=== PATIENT | female | born 1985 | race Caucasian/White ===

== ENCOUNTER 2016-10-06 17:17 | Emergency (ER) | payer OTHER ==
[2016-10-06 18:19] LABS: BASOPHIL 0.2 % (0-2); EOSINOPHIL 0.7 % (0-5); HCT 37.4 % (37.0-47.0); HGB 13.1 g/dl (12.5-16.0); LYMPHOCYTE 34.1 % (15-48); MCH 29.9 pg (25.0-31.0); MCV 85.4 fL (78.0-100.0); MONOCYTE 5.6 % (0-12); MPV 10.2 fL (6.0-9.5); NEUTROPHIL 59.4 % (41-80); PLT 206 K/uL (150-400); RBC 4.38 M/uL (4.20-5.40); RDW 13.4 % (11.5-14.0); WBC 5.9 K/uL (4.0-10.5)
[2016-10-06 19:03] LABS: CREATININE 0.7 mg/dL (0.5-1.0); POTASSIUM 3.9 mmol/L (3.5-5.1)
== END 2016-10-06 19:26 | disposition home or self-care (01) ==
LOC: FER 17:17
PROVIDERS: Nurse Practitioner Family
DX: G56.03 Carpal tunnel syndrome, bilateral upper limbs (principal); Z88.0 Allergy status to penicillin; Z88.8 Allergy status to other drugs, medicaments and biological substances
CPT/HCPCS: 36415; 80048; 85025; 99284